=== PATIENT | female | born 2000 | race American Indian/Alaskan Native ===

== ENCOUNTER 2018-09-22 22:32 | Emergency (ER) | payer SELFPAY ==
[2018-09-22 22:43] VITALS: BP 130/64
--- NOTE | 2018-09-22 23:11 | Event Note ---
ED Screening Note Date of service: 09/22/18 Time: 23:02 ED Screening Note: 18 year old female comes in for vaginal discharge for a week. LMP 08/31/18 This initial assessment/diagnostic orders/clinical plan/treatment(s) is/are subject to change based on patients health status, clinical progression and re- assessment by fellow clinical providers in the ED. Further treatment and workup at subsequent clinical providers discretion. Patient/guardian urged not to elope from the ED as their condition may be serious if not clinically assessed and managed. Initial orders include:
[2018-09-23 01:32] LABS: Bilirubin,Urine NEG (Negative); Blood,Urine NEG (Negative); Color,Urine Yellow (Yellow); Protein,Urine <15 mg/dL mg/dL (Negative)
[2018-09-23 03:08] LABS: Alanine Aminotransferase 11 units/L (7-56); Albumin 4.2 g/dL (3.9-5); BUN/Creatinine Ratio 17; Blood Urea Nitrogen 10 mg/dL (7-17); Calcium 9.3 mg/dL (8.4-10.2); Hemolysis Index 11
[2018-09-23 03:14] LABS: Hematocrit 39.1 % (30.3-42.9); Hemoglobin 13.6 gm/dl (10.1-14.3); Mean Corpuscular HGB Conc 35 % (30-34); Mean Corpuscular Volume 88 fl (79-97); Red Blood Count 4.43 M/mm3 (3.65-5.03); Red Cell Distribution Width 12.3 % (13.2-15.2)
[2018-09-23 03:15] LABS: Mean Platelet Volume 8.2 fl (6-12); Platelet Count 205 K/mm3 (140-440)
--- NOTE | 2018-09-23 05:20 | Ultrasound Report ---
Transabdominal pelvic ultrasound INDICATION: Right lower quadrant pelvic pain FINDINGS: Uterus measures 8.7 x 4 x 4.8 cm. Endometrial stripe is somewhat thickened at 1.8 cm but ut erus otherwise appears normal. Right ovary measures 3.6 x 3.4 x 2.2 cm and appears normal. No cystic or solid ovarian masses. There is good arterial flow to the right ovary with no evidence of torsion. The left ovary measures 2.5 x 1.4 x 2 cm and appears normal as well. No free fluid seen. IMPRESSION: Thickened endometrial stripe probably due to the menstrual cycle. Otherwise negative stud y. Signer Name: Eugenio Denise MD Signed: 09/23/2018 5:15 AM Workstation Name: [id number]
[2018-09-23 05:22] LABS: Anisocytosis Few; Basophils % (Manual) 0 % (0.0-1.8); Eosinophils % (Manual) 0 % (0.0-4.3); Total Cells Counted 100
[2018-09-23 05:23] LABS: Platelet Estimate Consistent w Auto
--- NOTE | 2018-09-23 06:04 | Emergency Department Report ---
ED Female HPI - General Chief complaint: Abdominal Pain Stated complaint: ABD PAIN Time Seen by Provider: 09/22/18 23:01 Source: patient Mode of arrival: Ambulatory Limitations: No Limitations - History of Present Illness Initial comments: Patient is A1 18-year-old -[place] female with no past medical history who presents to the ED with a complaint of acute onset persistent pelvic pain with vaginal discharge intermittently for the last 1 week, worse in the last 2 days. Patient states that the pain is intermittent and not feeling seems to provoke the pain or make it worse. Patient denies vaginal bleeding, dizziness, fever, chills, diarrhea, dyspareunia, dysuria, urinary frequency and urgency and back pain. MD Complaint: vaginal discharge, pelvic pain -: Sudden, week(s) (1) Location: suprapubic Radiation: non-radiating Severity: moderate Severity scale (0 -10): 4 Quality: cramping, dull Consistency: intermittent Improves with: none Worsens with: none Are you Now?: No Last Menstrual Period: 09/14/18 EDC: 06/21/19 Associated Symptoms: denies other symptoms, vaginal discharge, abdominal pain. denies: vaginal bleeding, nausea/vomiting, fever/chills, headaches, loss of appetite, dysuria, hematuria, rash, shortness of breath, syncope, weakness - Related Data Sexually active: Yes : 1 Para: 0 A: 1 Previous Rx's Medication Instructions Recorded Last Taken Type Ibuprofen [Motrin] 600 mg PO Q8H PRN #20 tablet 09/23/18 Unknown Rx Ondansetron [Zofran Odt] 4 mg PO Q6HR PRN #15 tab.rapdis 09/23/18 Unknown Rx metroNIDAZOLE [Flagyl] 500 mg PO Q12HR #20 tab 09/23/18 Unknown Rx Allergies Allergy/AdvReac Type Severity Reaction Status Date / Time No Known Allergies Allergy Verified 09/22/18 22:42 ED Review of Systems ROS: Stated complaint: ABD PAIN Other details as noted in HPI Constitutional: denies: chills, fever Eyes: denies: eye pain, eye discharge, vision change ENT: denies: ear pain, throat pain Respiratory: denies: cough, shortness of breath, wheezing Cardiovascular: denies: chest pain, palpitations Endocrine: no symptoms reported Gastrointestinal: abdominal pain (pelvic pain). denies: nausea, vomiting, diarrhea, constipation, hematemesis, melena Genitourinary: discharge. denies: urgency, dysuria Musculoskeletal: denies: back pain, joint swelling, arthralgia Skin: denies: rash, lesions Neurological: denies: headache, weakness, paresthesias Psychiatric: denies: anxiety, depression Hematological/Lymphatic: denies: easy bleeding, easy bruising ED Past Medical Hx - Social History Smoking Status: Light Tobacco Smoker - Medications Home Medications: Home Medications Medication Instructions Recorded Confirmed Last Taken Type Ibuprofen [Motrin] 600 mg PO Q8H PRN #20 tablet 09/23/18 Unknown Rx Ondansetron [Zofran Odt] 4 mg PO Q6HR PRN #15 tab.rapdis 09/23/18 Unknown Rx metroNIDAZOLE [Flagyl] 500 mg PO Q12HR #20 tab 09/23/18 Unknown Rx ED Physical Exam - General Limitations: No Limitations General appearance: alert, in no apparent distress - Head Head exam: Present: atraumatic, normocephalic, normal inspection - Eye Eye exam: Present: normal appearance, PERRL, EOMI. Absent: scleral icterus Pupils: Present: normal accommodation - ENT ENT exam: Present: normal exam, normal orophraynx, mucous membranes moist, TM's normal bilaterally, normal external ear exam - Neck Neck exam: Present: normal inspection, full ROM. Absent: tenderness - Respiratory Respiratory exam: Present: normal lung sounds bilaterally. Absent: respiratory distress, wheezes, rales, rhonchi, chest wall tenderness, accessory muscle use, decreased breath sounds, prolonged expiratory - Cardiovascular Cardiovascular Exam: Present: regular rate, normal rhythm, normal heart sounds. Absent: systolic murmur, diastolic murmur, rubs, gallop - GI/Abdominal GI/Abdominal exam: Present: soft, normal bowel sounds. Absent: tenderness, guarding, rigid, hyperactive bowel sounds, hypoactive bowel sounds, mass, pulsatile mass, hernia - Rectal Rectal exam: Present: deferred - Bi-manual exam: Present: other (Pelvic exam deferred, patient preferrence) - Extremities Exam Extremities exam: Present: normal inspection, full ROM, normal capillary refill - Back Exam Back exam: Present: normal inspection, full ROM. Absent: tenderness, CVA tend erness (L), muscle spasm, paraspinal tenderness, vertebral tenderness - Neurological Exam Neurological exam: Present: alert, oriented X3, CN II-XII intact, normal gait, reflexes normal - Psychiatric Psychiatric exam: Present: normal affect, normal mood - Skin Skin exam: Present: warm, dry, intact, normal color. Absent: rash ED Course Vital Signs 09/22/18 22:42 Temperature 98.8 F Pulse Rate 16 L Respiratory 18 Rate Blood Pressure 130/64 [Right] O2 Sat by Pulse 100 Oximetry - Reevaluation(s) Reevaluation #1: 09/23/18 06:40 This is a 18-year-old female who presented to the ED with pelvic pain and vaginal discharge for one week. In the ED, the patient is alert and oriented 3 and is not in any distress and expresses no pain at this time. Lab test results were reviewed and are all unremarkable including a urinalysis. Pelvic ultrasound showed a thickened endometrial stripe due to menstrual cycle otherwise negative study. There is no cystic or solid ovarian masses. Patient was discharged home on medications and advised to follow-up with her primary care physician or RN [facility] ASSISTANT physician in 7-10 days for reevaluation or return to the ED immediately if symptoms get worse. ED Medical Decision Making - Lab Data Result diagrams: 09/23/18 02:30 09/23/18 02:30 - Radiology Data Radiology results: report reviewed, image reviewed Pelvic US: The uterus measures 8.7 x 4 x 4.8 cm. Endometrial stripe is somewhat thickened at 1.8 cm uterus otherwise appears normal. The right ovary measures 3.6 x 3.4 x 2.2 cm and appears normal. There are nol cystic or solid ovarian masses. There is good capillary refill to the right ovary with no evidence of torsion. The left ovary measures 2.5 x 1.4 x 2 cm and appears normal as well. There is no free fluid seen. - Medical Decision Making This is a 18-year-old female who presented to the ED with pelvic pain and vaginal discharge for one week. In the ED, the patient is alert and oriented 3 and is not in any distress and expresses no pain at this time. Lab test results were reviewed and are all unremarkable including a urinalysis. Pelvic ultrasound showed a thickened endometrial stripe due to menstrual cycle otherwise negative study. There is no cystic or solid ovarian masses. Patient was discharged home on medications and advised to follow-up with her primary care physician or RN [facility] ASSISTANT physician in 7-10 days for reevaluation or return to the ED immediately if symptoms get worse. - Differential Diagnosis Pelvic pain; Dysmenorrhea; Acute UTI; Bacterial vaginosis, acute PID Critical care attestation.: If time is entered above; I have spent that time in minutes in the direct care of this critically ill patient, excluding procedure time. ED Disposition Clinical Impression: Bacterial vaginosis Abdominal pain Qualifiers: Abdominal location: lower abdomen, unspecified Qualified Code(s): R10.30 - Lo wer abdominal pain, unspecified Disposition: TO HOME OR SELFCARE Is pt being admited?: No Does the pt Need Aspirin: No Condition: Stable Instructions: Bacterial Vaginosis (ED), Abdominal Pain (ED) Additional Instructions: Take medications with food, drink plenty of fluids and follow up with your primary care physician in 7-10 days for reevaluation. Return to the ED immediately if symptoms get worse. Prescriptions: metroNIDAZOLE [Flagyl] 500 mg PO Q12HR #20 tab Ibuprofen [Motrin] 600 mg PO Q8H PRN #20 tablet PRN Reason: Pain Ondansetron [Zofran Odt] 4 mg PO Q6HR PRN #15 tab.rapdis PRN Reason: Nausea Referrals: LANCE DREW MD [Primary Care Provider] - 3-5 Days Forms: STI Treatment and Prevention Time of Disposition: 06:01 Print Language: ITALIAN
[2018-09-23 06:54] LABS: Eosinophils # (Auto) 0.1 K/mm3 (0.0-0.4); Eosinophils % (Auto) 1.2 % (0.0-4.3); Monocytes # (Auto) 0.4 K/mm3 (0.0-0.8); Monocytes % (Auto) 10.4 % (0.0-7.3)
== END 2018-09-23 06:10 | disposition home or self-care (01) ==
LOC: ED 22:32
DX: N76.0 Acute vaginitis (principal); F17.200 Nicotine dependence, unspecified, uncomplicated; Z79.899 Other long term (current) drug therapy
CPT/HCPCS: 36415; 76856; 80053; 81001; 83690; 85007; 85025